=== PATIENT | female | born 1975 | race Caucasian/White ===

== ENCOUNTER 2024-03-10 11:42 | Emergency (ER) | payer SELFPAY ==
[2024-03-10 11:52] VITALS: BP 139/94; PULSE 78; TEMP 37.3; O2SAT 98; BMI 27.4
--- NOTE | 2024-03-10 11:55 | XR_ITS ---
The [address] [address] Patient Name: BETTYE CARBAJAL MRN: [id number] date: 1975 Sex: F Assigned Patient Location: ER Current Patient Location: ER Accession/Order Number: [id number] Exam Date: 03/10/2024 12:04 Report Date: 03/10/2024 12:29 At the request of: CHRISTO CRUZ Procedure: XR knee LT 3V PROCEDURE: XR ankle LT min 3V, XR tibia fibula LT 2V, XR knee LT 3V HISTORY: Trauma COMPARISON: None. FINDINGS: BONES:No fracture, acute abnormality, or significant arthropathy. SOFT TISSUES:No visible soft tissue swelling. EFFUSION:None visible. OTHER: Negative. XR/XR knee LT 3V IMPRESSION: 1. No acute bone abnormality or significant degenerative joint disease. Electronically authenticated by: CARA DAWSON Date: 03/10/2024 12:29
--- NOTE | 2024-03-10 11:55 | XR_ITS ---
The [address] [address] Patient Name: BETTYE CARBAJAL MRN: [id number] date: 1975 Sex: F Assigned Patient Location: ER Current Patient Location: ER Accession/Order Number: [id number] Exam Date: 03/10/2024 12:04 Report Date: 03/10/2024 12:29 At the request of: CHRISTO CRUZ Procedure: XR ankle LT min 3V PROCEDURE: XR ankle LT min 3V, XR tibia fibula LT 2V, XR knee LT 3V HISTORY: Trauma COMPARISON: None. FINDINGS: BONES:No fracture, acute abnormality, or significant arthropathy. SOFT TISSUES:No visible soft tissue swelling. EFFUSION:None visible. OTHER: Negative. XR/XR ankle LT min 3V IMPRESSION: 1. No acute bone abnormality or significant degenerative joint disease. Electronically authenticated by: CARA DAWSON Date: 03/10/2024 12:29
--- NOTE | 2024-03-10 11:55 | XR_ITS ---
The [address] [address] Patient Name: BETTYE CARBAJAL MRN: [id number] date: 1975 Sex: F Assigned Patient Location: ER Current Patient Location: ER Accession/Order Number: [id number] Exam Date: 03/10/2024 12:04 Report Date: 03/10/2024 12:29 At the request of: CHRISTO CRUZ Procedure: XR tibia fibula LT 2V PROCEDURE: XR ankle LT min 3V, XR tibia fibula LT 2V, XR knee LT 3V HISTORY: Trauma COMPARISON: None. FINDINGS: BONES:No fracture, acute abnormality, or significant arthropathy. SOFT TISSUES:No visible soft tissue swelling. EFFUSION:None visible. OTHER: Negative. XR/XR tibia fibula LT 2V IMPRESSION: 1. No acute bone abnormality or significant degenerative joint disease. Electronically authenticated by: CARA DAWSON Date: 03/10/2024 12:29
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
[2024-03-10] MEDS: KETOROLAC TROMETHAMINE 10 MG TABLET PO (13:13)
== END 2024-03-10 13:24 | disposition home or self-care (01) ==
PROVIDERS: Emergency Provider Emergency Medicine Emergency Medical Services
DX: S80.12XA Contusion of left lower leg, initial encounter (principal); V86.99XA Unspecified occupant of other special all-terrain or other off-road motor vehicle injured in nontraffic accident, initial encounter
CPT/HCPCS: 73562; 73590; 73610; 99284